=== PATIENT | female | born 2000 | race Two or more races ===

== ENCOUNTER 2024-04-24 11:55 | Emergency (ER) | payer OTHER ==
[~2024-04-24] VITALS: Ht 160 cm; Wt 44.0 kg
[2024-04-24] MEDS ORDERED: KETOROLAC TROMETHAMINE 30 MG VIAL ONE (13:45)
[2024-04-24] MEDS ORDERED: ONDANSETRON HCL 2 MG/ML VIAL IV ONE (13:45)
[2024-04-24] MEDS ORDERED: FAMOtidine 10 MG/ML (4ML VIAL) IV ONE (13:45)
[2024-04-24] MEDS ORDERED: KETOROLAC TROMETHAMINE 30 MG VIAL IM ONE (13:45)
[2024-04-24] MEDS ORDERED: FAMOTIDINE/PF 20 MG/2 ML VIAL ONE (13:46)
[2024-04-24] MEDS ORDERED: ONDANSETRON HCL 2 MG/ML VIAL ONE (13:46)
[2024-04-24 14:52] LABS: HEMATOCRIT 39.7 % (36.0-45.00); HEMOGLOBIN 12.4 g/dL (12.0-15.00); MEAN CELL VOLUME 85.1 fL (80.00-100.00); MEAN CORPUSCULAR HEMOGLOBIN 26.5 pg (27.00-32.0); MEAN CORPUSCULAR HGB CONC 31.2 g/dl (32.0-36.0); PLATELET COUNT 194 K/uL (150-450); RED BLOOD COUNT 4.67 M/uL (4.00-6.00); RED CELL DISTRIBUTION WIDTH 15.6 % (11.5-14.5)
[2024-04-24 15:12] LABS: INR 1.15; PARTIAL THROMBOPLASTIN TIME 28.2 SECONDS (22.0-34.0); PROTHROMBIN TIME 12.4 SECONDS (9.0-11.5)
[2024-04-24 15:16] LABS: ALBUMIN 3.8 gm/dL (3.4-5.0); ALKALINE PHOSPHATASE 62 U/L (50-136); ALT/SGPT 24 U/L (12-78); ANION GAP 5 (10.0-20.0); AST/SGOT 18 U/L (15-37); BILIRUBIN TOTAL 0.27 mg/dL (0.3-1.2); BLOOD UREA NITROGEN 9 mg/dL (7-18); BUN CREA RATIO 13 (7.0-25.0); CALCIUM 8.9 mg/dL (8.5-10.1); CARBON DIOXIDE 31 mEq/L (21-32); CHLORIDE 108 mmol/L (98-107); CREATININE SERUM 0.72 mg/dL (0.55-1.02); GFR 99.52; GLOBULINA 4.2 G/DL (2.4-3.5); GLUCOSE FASTING 78 mg/dL (65-100); HCG QUANTITATIVE < 1 mUI/mL (1-3); OSMOLALITY SERUM 277 MOSM/KG (275-295); POTASSIUM 3.52 mEq/L (3.5-5.1); SODIUM 140 mmol/L (136-145)
== END 2024-04-24 18:24 | disposition home or self-care (01) ==
LOC: ER 11:57
PROVIDERS: General Practice
DX: R10.31 Right lower quadrant pain (principal)